=== PATIENT | female | born 1995 | race Caucasian/White ===

== ENCOUNTER 2018-08-12 17:45 | Observation (INO) | payer BC ==
[2018-08-12 18:34] LABS: #Eosinphils 0.2 thou/uL (0.0-0.7); #Lymphocytes 1.6 thou/uL (1.20-3.40); #Monocytes 0.4 thou/uL (0.11-0.59); #Neutrophils 5.6 thou/uL (1.40-6.50); %Basophils 0.5 % (0.0-1.0); %Eosinophils 2.3 % (0.0-10.0); %Lymphocytes 20.9 % (21.0-51.0); %Monocytes 4.7 % (0.0-10.0); %Neutrophils 71.7 % (42.0-75.0); Hemoglobin 11.3 g/dL (12.0-16.0); Mean Corpuscular HGB CONC 32.4 g/dL (32.0-36.0); Mean Corpuscular Hemoglobin 23.4 pg (27.0-31.0); Mean Corpuscular Volume 72.2 fL (78.0-98.0); Mean Platelet Volume 7.7 fL (7.4-10.4); Platelet Count 415 thou/uL (130-400); Red Blood Cell (RBC) Count 4.83 mill/uL (4.20-5.40); White Blood Cell (WBC) Count 7.8 thou/uL (4.8-10.8)
[2018-08-12 18:43] LABS: BHCG - Serum Negative (NEGATIVE); Pregs Control Background? CLEAR/WHITE (CLR/WHITE); Pregs Control Bar Appear? YES (CONTROL BAR)
[2018-08-12 18:51] LABS: Anisocytosis SLIGHT = 6-15 cells (100X) (0-5/hpf); Hypochromia SLIGHT = 6-15 cells (100X) (0-5/hpf); MDiff Complete? YES; Microcytosis SLIGHT = 6-15 cells (100X) (0-5/hpf); Ovalocytes SLIGHT = 2-5 cells (100X) (0-1/hpf); Platelet Morphology Comment Appears Increased; Polychromasia SLIGHT = 2-3 cells (100X) (0-2/hpf)
[2018-08-12 18:54] LABS: Troponin I Less than 0.010 ng/mL (< 0.028)
[2018-08-12 19:01] LABS: ALT (SGPT) 18 U/L (8-55); AST (SGOT) 14 U/L (5-34); Albumin 3.9 g/dL (3.5-5.0); Alkaline Phosphatase 81 U/L (40-150); Anion Gap 11 mmol/L (10-20); BUN (Urea Nitrogen) 8 mg/dL (7.0-18.7); Bilirubin, Total 0.2 mg/dL (0.2-1.2); Calc. Creatinine Clearance 0 mL/min (70-130); Calcium 8.8 mg/dL (7.8-10.44); Carbon Dioxide 23 mmol/L (22-29); Chloride 108 mmol/L (98-107); Estimated GFR-MDRD 89; Glucose 108 mg/dL (70-105); Potassium 3.9 mmol/L (3.5-5.1); Protein, Total 6.9 g/dL (6.0-8.3); Sodium 138 mmol/L (136-145)
--- NOTE | 2018-08-12 19:29 | CT ---
CT BRAIN NONCONTRAST: 08/12/18 HISTORY: 22-year-old female with dizziness, nausea, and lightheadedness plus headache and memory loss. FINDINGS: There is no midline shift or any other mass effect. There is no evidence of acute intracranial hemor rhage, large cortical infarct, obstructive hydrocephalus, or extraaxial fluid collection. The calvar ium is intact. IMPRESSION: No acute intracranial findings. florian [] POS: [facility]
[2018-08-12] MEDS ORDERED: diphenhydrAMINE 50 MG/ML VIAL ONE (20:15)
[2018-08-12] MEDS ORDERED: Acetaminophen 500 MG TAB ONE (20:16)
[2018-08-12] MEDS ORDERED: Ketorolac Tromethamine 30 MG/ML VIAL ONE (20:16)
[2018-08-12] MEDS ORDERED: methylPREDNISolone Sod Succ/PF 125 MG/2 ML VIAL ONE (21:41)
[2018-08-12] MEDS ORDERED: Magnesium 2 GM/50 ML BAG (IN WATER) ONE (21:41)
[2018-08-12] MEDS ORDERED: KETAMINE 100 MG/ML (5ML VIAL) ONE (22:49)
[2018-08-13] MEDS ORDERED: Ketorolac Tromethamine 30 MG/ML VIAL IVP PRN (06:52)
[2018-08-13] MEDS: Ondansetron PF 4 MG/2 ML Vial SLOW IVP PRN ×3 (07:45→23:34)
[2018-08-13] MEDS ORDERED: Acetaminophen 325 MG TAB PO PRN (08:24)
--- NOTE | 2018-08-13 10:13 | CT ---
NONCONTRAST HEAD CT CT ANGIOGRAM OF THE HEAD: History: Dizziness. Worsening headache. Confusion. Comparison: None. Technique: 1. Noncontrast head CT is performed in the axial plane. 2. CT angiogram was performed in the axial plane. 3D reformatted images are submitted for interpretat ion. FINDINGS: Noncontrast head CT: No parenchymal hemorrhage. No extraaxial hematoma. No midline shift. Basilar cis terns are patent. Brain volume, age appropriate. Cortical ramirez white matter differentiation is preser clemencia. Ventricles and sulci are patent and symmetric. Calvarium is intact. Adequate aeration of the sinuses and mastoid air cells. Post contrast head CT: There is no pathologic enhancement of the brain parenchyma. Cortical ramirez whit e matter differentiation is preserved. CTA Head: The distal cervical internal carotid arteries and vertebral arteries have appropriate enhan cement and luminal diameter. Anterior circulation: Minimal atherosclerosis involving the distal right cavernous carotid segment. T here is no significant stenosis of either cavernous carotid artery or either intracranial internal ca rotid artery. Anterior circulation: Symmetric enhancement in luminal diameter of the A1 and M1 segments. Proximal A P segment and proximal MCA branches have symmetric enhancement and luminal diameter. There is no evid ence of vascular occlusion. No evidence of dissection. No evidence of aneurysm. Posterior circulation: Both PICA R2 origins are unremarkable. Both vertebral artery supply normal nathen iber basilar arteries. Appropriate enhancement and luminal diameter. Both P1 segments have symmetric enhancement and luminal diameter. There is no evidence of dissection, vascular occlusion or aneurysm in the posterior circulation. IMPRESSION: No evidence of aneurysm at the level of the [place] of Denis. POS: [facility]
[2018-08-13] MEDS: Dihydroergotamine Mesylate 1 MG/ML AMP SLOW IVP SCH ×3 (11:25→23:27)
[2018-08-13] MEDS ORDERED: Iopamidol 370 76% 100 ML VIAL ONE (11:29)
--- NOTE | 2018-08-13 12:47 | HP ---
PRIMARY CARE PHYSICIAN: Dr. Emily West. CHIEF COMPLAINT: Headache and confusion. HISTORY OF PRESENT ILLNESS: Ms. Oden is a pleasant 22-year-old female, who has a history of polycystic ovarian syndrome as well as depression and anxiety. She says that she was in her usual state of health until yesterday. She says that she works for [employer] and she was driving to [place], when she was long-term there, when she started to lose focus and seemed like her head was pounding. She says that she called her , who is an EMT and he told her to well puller head to the side of the road, which she did and then went into a local fast food restaurant, where she said she started talking to some body for quite some time and her head started pounding. She felt a little nauseated. She says she does not remember talking to the person and she does not even remember how she got to where she was. She says prior to this, she recently had an increase in her dose of Effexor from 75 mg up to 150, and was started on BuSpar and she took both of these on that day. She says that she has had been on 150 mg of Effexor before, but she had stopped taking it several months ago and had been on no medications and then recently started back on 75 mg and then her doctor had increased it up to 150 when this occurred. She denies having any weakness in her arms or legs. No numbness, but says generally she felt kind of weak in her body, felt numb, but she did not have any visual changes. She did not have any dullness in her vision or blurred vision, and she had not seen any spots other than a few blue spots that she said when this happened. REVIEW OF SYSTEMS: All systems were reviewed and are negative except for that mentioned in the history of present illness. PAST MEDICAL HISTORY: Significant for anxiety, depression, polycystic ovarian syndrome, and she has cyst on her tailbone. PAST SURGICAL HISTORY: She has had a tonsillectomy. ALLERGIES: ALLERGIES ARE TO CODEINE AND REGLAN, WHICH GAVE HER A BAD REACTION. SOCIAL HISTORY: She is . She is a nonsmoker. She occasionally drinks. She works for [employer]. Code status is full code. FAMILY HISTORY: Significant for diabetes, hypertension, and atrial fibrillation. CURRENT MEDICATIONS: Include; 1. BuSpar 15 mg daily. 2. Effexor 150 mg a day. 3. Oral contraceptives. PHYSICAL EXAMINATION: GENERAL: She is alert and oriented. She is well developed and well nourished, and appears to be in no acute distress. VITAL SIGNS: Blood pressure was 120/70, heart rate 100, respiratory rate of 16, and temperature is 98.3. HEENT: Pupils are equal, round, and reactive. Extraocular muscles are intact. Sclerae anicteric. Throat, there is no erythema, no exudates. NECK: No adenopathy. No bruits. LUNGS: Clear to auscultation. There is no wheezing, no rales, no rhonchi. CARDIOVASCULAR: She had a normal S1 and S2. I did not appreciate an S3 or S4. No murmurs, clicks, or rubs. ABDOMEN: Obese. It is soft. It is nontender and nondistended. Positive for bowel sounds. There is no rebound, no guarding. No organomegaly. EXTREMITIES: There is no clubbing or cyanosis. No edema. NEUROLOGIC: The exam is nonfocal. Her muscle strength is 5/5 in both her upper and lower extremities. She was able to do [id number]-bh-[id number] without difficulty as well as nbym-kv-[id number]. SKIN AND INTEGUMENT: There are no skin changes. No rash with the exception of some small acne on her chest. LABORATORY DATA: Sodium is 138, potassium 3.9, chloride is 108, CO2 is 23, BUN of 8, creatinine 0.8, glucose is 108. Troponin is less than 0.010. Serum test was negative. White blood cell count 7.8, hemoglobin 11.3, hematocrit is 34.8, and platelet count is 415. ASSESSMENT: This is a 22-year-old female, who presented to the emergency room with headache, which was pounding and mostly over most of her head without any other really worrisome symptoms. I suspect this is likely the result of recent change in medications. A CT scan of the brain was negative. We will go ahead and order an MRI as well as a CT angiogram to rule out aneurysm as well as get a Neurology evaluation. Otherwise, if these tests are negative, then I suspect she can be discharged home later on this afternoon. Job ID: [id number]
[2018-08-13] MEDS: Ibuprofen 200 MG TAB PO PRN (13:38)
[2018-08-13] MEDS ORDERED: Calcium Carbonate 500 MG ChewTAB PO PRN (14:58)
--- NOTE | 2018-08-13 15:51 | MRI ---
MRI OF THE BRAIN WITHOUT CONTRAST: 08/13/18 HISTORY: Dizziness. Headache. Syncope. COMPARISON: None. TECHNIQUE: Brain MRI is performed without intravenous gadolinium administration. Multisequential, multiplanar im aging is performed. FINDINGS: No hemorrhage on the axial gradient echo sequence. The calvarium has a normal T1 marrow signal intensity. Midline brain parenchymal structures are unrem arkable. Central arterial flow voids are maintained. Absent restricted diffusions. No parenchymal mass, mass effect or midline shift. Brain volume, age appropriate. Cortical ramirez-white matter differentiation preserved. Ventricles and sulci are patent and symmetric. Adequate aeration of the sinuses and mastoid air cells. IMPRESSION: Unremarkable noncontrast brain MRI. POS: [facility]
[2018-08-13 15:59] LABS: ANA Symphony (Qualitative) Negative (Negative); ANA Symphony (Quantitative) 0.1 Ratio (< 0.7 Negative); dsDNA IgG Antibody 2.1 IU/mL (<10 Negative)
--- NOTE | 2018-08-13 17:49 | PDOC.EVN ---
Event Note - Event Note Event Note: Patient is refusing to drink fluids. Will start an IV infusion.
[2018-08-13] MEDS: Sodium Chloride 0.9% 1,000 ML IV SCH (18:13)
[2018-08-14] MEDS: Fiorinal 325/50/40 mg Tablet PO PRN ×3 (00:33→11:33)
[2018-08-14] MEDS: Sodium Chloride 0.9% 1,000 ML IV SCH ×2 (04:56→15:11)
[2018-08-14] MEDS: Ibuprofen 200 MG TAB PO PRN (04:56)
[2018-08-14] MEDS: Dihydroergotamine Mesylate 1 MG/ML AMP SLOW IVP SCH ×4 (05:54→23:59)
[2018-08-14] MEDS: Ondansetron PF 4 MG/2 ML Vial SLOW IVP PRN ×2 (06:26→12:36)
[2018-08-14] MEDS ORDERED: Promethazine HCl 25 MG/ML VIAL IM/IV PRN (13:48)
[2018-08-14] MEDS ORDERED: Lorazepam 0.5 MG TAB PO PRN (14:04)
--- NOTE | 2018-08-14 14:06 | PDOC.PN ---
- Subjective Encounter Start Date: 08/14/18 Encounter Start Time: 14:04 Ms. Oden was seen today in follow-up of intractable headache. - Objective Resuscitation Status - Order Detail: 08/13/18 08:22 Resuscitation Status Routine Resuscitation Status: FULL: Full Resuscitation MAR Reviewed: Yes Vital Signs & Weight: Vital Signs (12 hours) Temp Pulse Resp BP Pulse Ox 08/14/18 11:46 98.1 F 71 20 111/66 08/14/18 07:49 98.3 F 74 20 110/54 L 97 08/14/18 04:56 98.6 F 73 16 114/58 L 98 Weight Weight 257 lb 15.053 oz I&O: 08/13/18 08/14/18 08/15/18 06:59 06:59 06:59 Intake Total 1601 Balance 1601 Result Diagrams: 08/12/18 18:21 08/12/18 18:21 Phys Exam - Physical Examination HEENT: PERRLA Respiratory: no wheezing, no rales, no rhonchi, clear to auscultation bilateral Cardiovascular: RRR, no significant murmur, no rub Gastrointestinal: soft, non-tender, no distention, positive bowel sounds Musculoskeletal: no edema, pulses present Neurological: non-focal Dx/Plan (1) Intractable headache Code(s): R51 - HEADACHE Status: Acute (2) Anxiety Code(s): F41.9 - ANXIETY DISORDER, UNSPECIFIED Status: Chronic (3) Nausea and vomiting Code(s): R11.2 - NAUSEA WITH VOMITING, UNSPECIFIED Status: Acute - Plan * Intractable headache- ? etiology, MRI of brain was negative, as well as CTA- She is having nausea and wretching, so it is possible this is a migraine. Will await Neurology opinion * Anxiety- ativan as needed * Recent UTI- requests a UA to be sure she does not have " sepsis ".
[2018-08-14] MEDS: Promethazine 25 MG TAB PO PRN ×2 (14:26→23:06)
[2018-08-14] MEDS ORDERED: HYDROcodone/Acetaminophen 10/325 mg Tablet PO PRN (17:58)
[2018-08-14] MEDS ORDERED: Dexamethasone 10 MG/ML VIAL SLOW IVP SCH (18:30)
[2018-08-14] MEDS ORDERED: Valproate Sodium 1,000 MG in Sodium Chloride 0.9% 100 ML IVPB SCH (18:30)
[2018-08-14 19:36] LABS: CSF Source CSF; Clarity Clear (Clear); RBC Count - Manual 0 /cumm (None Seen); Tube # 4; WBC/NonHematics Count - Manual 0 /cumm (0-5)
[2018-08-14 19:47] LABS: Color Of CSF Supernatant COLORLESS (Colorless); Tube # 2; Unspun CSF Color COLORLESS (Colorless)
[2018-08-14 19:48] LABS: CSF, Glucose 64 mg/dl (40-70); CSF, Protein 18 mg/dL (15-40)
--- NOTE | 2018-08-14 21:25 | RAD ---
FLUOROSCOPICALLY GUIDED LUMBAR PUNCTURE: 08/14/18 at 6:30 p.m. HISTORY: 22-year-old female with intractable headache. Rule out viral meningitis. TECHNIQUE: Signed informed consent obtained. Patient placed prone CYPRIOT on fluoroscopy table. Skin of lower back p repared and draped in the usual sterile fashion. 25 gauge needle used to apply buffered lidocaine sup erficially and deeply. 22 gauge spinal needle advanced into the spinal canal and thecal sac from righ t paramedian approach at the L2-3 level. Upon return of clear CSF, the patient was placed in left lat eral decubitus position. Three-way stopcock was placed on the spinal needle. Manometer was placed on the stopcock. Opening pressure was obtained. Next, CSF was collected and placed into four vials. Spin al needle was removed. Patient tolerated the procedure well. No complications. TOTAL FLUOROSCOPY TIME: 1.6 minutes. DAP: 975 uGy*m^2 FINDINGS: Fluoroscopic spot images demonstrates spinal needle at the posterior aspect of the spinal canal at L2 -3 level. Opening pressure is 17 cm of CSF. CSF color: Clear. Vial 1: 1 mL. Vial 2: 4 mL. Vial 3: 3 mL. Vial 4: 3 mL. IMPRESSION: 1. Successful lumbar puncture. 2. Total of 11 mL of clear cerebrospinal fluid collected and sent to laboratory for analysis. 3. Opening pressure = 17 cm CSF. POS: [facility]
--- NOTE | 2018-08-15 00:12 | CON ---
DATE OF CONSULTATION: 08/14/2018 TYPE OF CONSULTATION: Neurologic Consultation. CONSULTING PHYSICIAN: Hospitalist Service. IMPRESSION: Persistent throbbing headache of uncertain etiology. She has failed to respond to antimigraine therapy thus far. Clinical presentation would be atypical for pseudotumor cerebri given the acute nature of her symptoms. Viral meningitis would be a consideration considering the clinical picture of vascular type headache. PLAN: 1. Decadron 10 mg IV. 2. Valproic acid 1000 mg IV. 3. [place] 10 mg q.6 hours as needed for pain. 4. Lumbar puncture to assess opening pressure and other CSF measures. HISTORY OF PRESENT ILLNESS: Ms. Oden is a 22-year-old white female, who reports developing a fairly acute onset of bilateral throbbing headache. It has been associated with some nausea and vomiting. She has not had any fever. She reports some light and sound sensitivity. She has never had a headache before. There is no family history of migraine. She was brought in for treatment. She initially did not respond to Toradol and antiemetics. She had a CT angiogram of the brain, which did not show any evidence of an aneurysm. She has subsequent MRI of the brain, which is also normal although lab work has been within normal limits. PAST MEDICAL HISTORY: Otherwise negative. FAMILY HISTORY: Unremarkable. SOCIAL HISTORY: She is . No tobacco or alcohol use. MEDICATIONS: None. REVIEW OF SYSTEMS: Ten-system review of systems was otherwise negative. PHYSICAL EXAMINATION: GENERAL: She is an obese young woman, lying in bed in the dark. HEENT: Unremarkable. NECK: Supple. EXTREMITIES: No cyanosis. NEUROLOGIC: She is alert and cooperative. Her speech is fluent and clear. Exam is nonfocal. No abnormal movements were seen. Imaging was reviewed. SUMMARY: We will proceed with further treatment and diagnostic measures to try to determine the source of her headache. Job ID: [id number]
[2018-08-15] MEDS: Sodium Chloride 0.9% 1,000 ML IV SCH ×3 (04:21→07:27)
[2018-08-15] MEDS: Dihydroergotamine Mesylate 1 MG/ML AMP SLOW IVP SCH ×3 (06:20→07:28)
--- NOTE | 2018-08-15 08:36 | PDOC.PN ---
- Subjective Encounter Start Date: 08/15/18 Encounter Start Time: 11:38 Ms. Oden was seen today in follow-up of headache. She says she is now having soreness in her lower back, and weakness in her legs. She says the Depakote only worked for a few minutes, and then her headache returned. Her says " we are in the same place where we started". - Objective Resuscitation Status - Order Detail: 08/13/18 08:22 Resuscitation Status Routine Resuscitation Status: FULL: Full Resuscitation MAR Reviewed: Yes Vital Signs & Weight: Vital Signs (12 hours) Temp Pulse Resp BP BP Pulse Ox 08/15/18 08:13 98.1 F 75 20 85/50 L 95 08/15/18 06:20 97.7 F 70 16 100/57 L 99 08/14/18 23:10 98.4 F 60 16 89/52 L 99 Weight Weight 257 lb 15.053 oz I&O: 08/14/18 08/15/18 08/16/18 06:59 06:59 06:59 Intake Total 1601 1231 Balance 1601 1231 Result Diagrams: 08/12/18 18:21 08/12/18 18:21 Phys Exam - Physical Examination HEENT: PERRLA Respiratory: no wheezing, no rales, no rhonchi, clear to auscultation bilateral Cardiovascular: RRR, no significant murmur, no rub Gastrointestinal: soft, non-tender, no distention, positive bowel sounds Musculoskeletal: no edema Neurological: non-focal, normal sensation, moves all 4 limbs patient is able to lift both legs, doriflex and planatar flex both feet Psychiatric: A&O x 3 Deviation from normal: flat affect Dx/Plan (1) Intractable headache Code(s): R51 - HEADACHE Status: Acute (2) Anxiety Code(s): F41.9 - ANXIETY DISORDER, UNSPECIFIED Status: Chronic (3) Nausea and vomiting Code(s): R11.2 - NAUSEA WITH VOMITING, UNSPECIFIED Status: Acute - Plan * Headache- ? etiology- possible migraine, but suspect there is significant emotional overtones * Work-up is negative * Stable for discharge home. * Follow-up at Outpatient Headache clinic, and with her Primary Care Provider in 1 week
[2018-08-15 10:14] LABS: Bilirubin Negative (Negative); Blood, Urine Negative (Negative); Clarity CLOUDY (Clear); Glucose, Urine (Dipstick) Negative (Negative); Leukocyte Negative (Negative); Nitrite Negative (Negative); Protein, Urine (Dipstick) Negative (Neg-Trace); Specific Gravity, Urine 1.013 (1.002-1.036)
[2018-08-15 10:18] LABS: Bacteria/HPF Rare-Few HPF (None Seen); Hyaline Casts/LPF 0-3 HYALINE CAST LPF (0-3 Hyaline); RBC/HPF 0-3 HPF (0-3); Squamous Epithelial 0-3 HPF (0-3); WBC/HPF 0-3 HPF (0-3)
[2018-08-15 11:41] VITALS: BP 104/59; TEMP 98.3
[2018-08-15] MEDS: Ibuprofen 200 MG TAB PO PRN (11:54)
--- NOTE | 2018-08-16 03:41 | DIS ---
DATE OF ADMISSION: 08/13/2018 DATE OF DISCHARGE: 08/15/2018 PRIMARY CARE PHYSICIAN: Emily West MD. DISCHARGE DISPOSITION: Home. PRIMARY DISCHARGE DIAGNOSES: 1. Intractable headache, etiology is unknown. 2. Generalized anxiety. 3. Depression. 4. Polycystic ovarian syndrome. DISCHARGE MEDICATIONS: Include tramadol 50 mg one q.6 h. p.r.n., Klonopin 0.5 mg twice a day as needed, Effexor 150 mg extended release daily and norethindrone or Pirmella . PROCEDURES DONE: During admission, the patient had a CT scan of the brain, which was negative. An MRI of the brain, which was negative for any intracranial abnormalities. A CT angiogram which was negative for aneurysm and a lumbar puncture, which was negative, it was clear, colorless. There was no red cells or white cells or bacteria, and the opening pressure was 17 cm of water, CSF. CODE STATUS: Full code. ALLERGIES: CODEINE, METOCLOPRAMIDE, MIRTAZAPINE, AND MORPHINE. HOSPITAL COURSE: Ms. Oden is a pleasant 22-year-old female who presented to the emergency room complaining of severe headache as well as some intermittent confusion. The full details of which are outlined in my history and physical. She was admitted and an MRI of the brain was obtained which was negative as well as a CTA to rule out significant aneurysm. She was seen by Neurology as well. She was tried on several medications including the D.H.E. which was ineffective as well as Depakote, which the patient also said was ineffective. IV Toradol as well as ketamine in the emergency room, and prednisone and diphenhydramine also ineffective. The patient has a history of some degree of depression and anxiety and I suspect that there could be some degree of secondary gain involved as well as some emotional overtones which are affecting her headache. She was referred to an outpatient headache clinic and to continue with her treatment for depression and anxiety with her primary care physician and possibly even referral to Psychiatry as well. Job ID: [id number]
--- NOTE | 2018-08-16 10:46 | EKG ---
Test Reason : Blood Pressure : / mmHG Vent. Rate : 091 BPM Atrial Rate : 091 BPM P-R Int : 152 ms QRS Dur : 078 ms QT Int : 368 ms P-R-T Axes : 039 036 063 degrees QTc Int : 452 ms Normal sinus rhythm Normal ECG Confirmed by KELLY FINCH DO ([id number]), video news editor ASCENCION IVEY ([id number]) on 08/16/2018 10:45:43 AM Referred By: Confirmed By:KELLY FINCH DO
== END 2018-08-15 12:45 | disposition home or self-care (01) ==
LOC: ERS 17:45 → 3SE 08-13 01:15
PROVIDERS: ADMIT Hospitalist; ATTEND Hospitalist
PROC: 00JU3ZZ Inspection of Spinal Canal, Percutaneous Approach (ICD-10-PCS; principal; 2018-08-14)
DX: R51 Headache (principal); R41.0 Disorientation, unspecified; F41.1 Generalized anxiety disorder; F33.1 Major depressive disorder, recurrent, moderate; E28.2 Polycystic ovarian syndrome; N94.6 Dysmenorrhea, unspecified; N92.0 Excessive and frequent menstruation with regular cycle; Z79.3 Long term (current) use of hormonal contraceptives; Z79.899 Other long term (current) drug therapy; Z88.5 Allergy status to narcotic agent; Z88.8 Allergy status to other drugs, medicaments and biological substances
CPT/HCPCS: 36415; 62270; 70450; 70496; 70551; 80053; 81001; 82945; 84157; 84484; 84703; 85025; 86038; 86225; 87070; 87205; 89051; 93005; 96361; 96365; 96366; 96367; 96375; 96376; G0378; J1100; J1110; J1200; J1885; J2405; J2930; J7050

== ENCOUNTER 2018-12-25 11:11 | Emergency (ER) | payer BC ==
[2018-12-25 11:55] LABS: #Basophils 0.1 thou/uL (0.0-0.2); #Eosinphils 0.2 thou/uL (0.0-0.7); #Lymphocytes 1.9 thou/uL (1.20-3.40); #Monocytes 0.4 thou/uL (0.11-0.59); #Neutrophils 5.1 thou/uL (1.40-6.50); %Basophils 0.8 % (0.0-1.0); %Eosinophils 2.1 % (0.0-10.0); %Monocytes 5.5 % (0.0-10.0); %Neutrophils 66.5 % (42.0-75.0); Hemoglobin 11.8 g/dL (12.0-16.0); Mean Corpuscular HGB CONC 31.6 g/dL (32.0-36.0); Mean Corpuscular Hemoglobin 23.7 pg (27.0-31.0); Mean Platelet Volume 7.5 fL (7.4-10.4); Platelet Count 440 thou/uL (130-400); Red Blood Cell (RBC) Count 4.98 mill/uL (4.20-5.40); White Blood Cell (WBC) Count 7.7 thou/uL (4.8-10.8)
[2018-12-25 12:10] LABS: ALT (SGPT) 26 U/L (8-55); AST (SGOT) 22 U/L (5-34); Albumin 4.3 g/dL (3.5-5.0); Alkaline Phosphatase 60 U/L (40-150); Anion Gap 11 mmol/L (10-20); BUN (Urea Nitrogen) 11 mg/dL (7.0-18.7); Bilirubin, Total 0.4 mg/dL (0.2-1.2); Calc. Creatinine Clearance 0 mL/min (70-130); Calcium 9.4 mg/dL (7.8-10.44); Carbon Dioxide 23 mmol/L (22-29); Chloride 108 mmol/L (98-107); Estimated GFR-MDRD Greater than 90; Glucose 92 mg/dL (70-105); Lipase 18 U/L (8-78); MDiff Complete? YES; Microcytosis SLIGHT = 6-15 cells (100X) (0-5/hpf); Platelet Morphology Comment Appears Increased; Polychromasia SLIGHT = 2-3 cells (100X) (0-2/hpf); Potassium 4.1 mmol/L (3.5-5.1); Protein, Total 7.3 g/dL (6.0-8.3); Sodium 138 mmol/L (136-145)
[2018-12-25 12:30] LABS: Bilirubin Negative (Negative); Blood, Urine Negative (Negative); Clarity CLOUDY (Clear); Glucose, Urine (Dipstick) Negative (Negative); Leukocyte Small (Negative); Nitrite Positive (Negative); Protein, Urine (Dipstick) Negative (Neg-Trace); Urobilinogen 0.2 mg/dL (0.2-1.0)
[2018-12-25 12:31] LABS: Pregnancy Test - Urine (BHCG) Negative (Negative); Pregu Control Background? CLEAR/WHITE (CLR/WHITE); Pregu Control Bar Appear? YES (CONTROL BAR)
[2018-12-25] MEDS ORDERED: Ondansetron PF 4 MG/2 ML Vial ONE (12:34)
[2018-12-25 12:38] LABS: RBC/HPF 0-3 HPF (0-3)
[2018-12-25 12:39] LABS: Bacteria/HPF 4+ HPF (None Seen); Hyaline Casts/LPF NONE SEEN LPF (0-3 Hyaline)
== END 2018-12-25 13:43 | disposition home or self-care (01) ==
LOC: ERS 11:11
DX: E86.0 Dehydration (principal); N39.0 Urinary tract infection, site not specified; F41.9 Anxiety disorder, unspecified; F32.9 Major depressive disorder, single episode, unspecified; Z79.899 Other long term (current) drug therapy
CPT/HCPCS: 36415; 80053; 81003; 81015; 81025; 83690; 84443; 85025; 93005; 96361; 96374; J2405